=== PATIENT | female | born 1930 | race Caucasian/White ===

== ENCOUNTER 2021-06-19 05:23 | Emergency (ER) | payer OTHER, MEDICARE ==
[2021-06-19 05:43] VITALS: BP 171/90; PULSE 73; TEMP 99; BMI 23.4
[2021-06-19] MEDS ORDERED: SILVER NITRATE 75% APPLIC STCK 1 PKT EACH ONE (06:39)
[2021-06-19] MEDS ORDERED: LOCK ITEM NR ONE (07:34)
== END 2021-06-19 08:07 | disposition home or self-care (01) ==
LOC: FER 05:23
DX: R04.0 Epistaxis (principal)
CPT/HCPCS: 99281-25